=== PATIENT | female | born 1990 | race Two or more races ===

== ENCOUNTER 2022-12-11 09:55 | Observation (INO) | payer MEDICAID, OTHER ==
[2022-12-11] MEDS ORDERED: PREN-129 OR (10:33)
== END 2022-12-11 12:17 | disposition home or self-care (01) ==
LOC: LDRP 09:55
PROVIDERS: ADMIT Obstetrics & Gynecology; ATTEND Obstetrics & Gynecology
DX: O62.9 Abnormality of forces of labor, unspecified (principal); Z3A.40 40 weeks gestation of pregnancy
CPT/HCPCS: 59025; 76818; 81002; G0378

== ENCOUNTER 2022-12-12 03:23 | Inpatient (IN) | payer MEDICAID ==
[~2022-12-12] VITALS: Ht 160 cm; Wt 103.0 kg
[~2022-12-12 03:23] MED LIST: PREN-129 OR
[2022-12-12] MEDS ORDERED: DERMOPLAST 60ML BOTTLE TOP PRN (05:45)
[2022-12-12] MEDS ORDERED: BUTORPHANOL TARTRATE 2 MG/1 ML VIAL IV PRN ×2 (05:45)
[2022-12-12] MEDS ORDERED: LIDOCAINE 2%HCL (LOCAL ANESTH.) INJ 20ML MDV IJ PRN (05:45)
[2022-12-12] MEDS ORDERED: WITCH HAZEL-GLYCERIN PAD TOP PRN (05:45)
[2022-12-12] MEDS ORDERED: LACTATED RINGER'S 1,000 ML IV SCH (05:45)
[2022-12-12] MEDS ORDERED: PHISODERM TOP SOLN 240ML BTL TOP PRN (05:45)
[2022-12-12] MEDS ORDERED: PROMETHAZINE HCL 25 MG/ML 1ML IV PRN (05:45)
[2022-12-12 06:29] LABS: Basophils # (auto) 0 10 ^3/uL (0-0.2); Basophils % (auto) 0.1 % (0.0-2.0); Eosinophils # (auto) 0 10 ^3/uL (0-0.8); Eosinophils % (auto) 0.2 % (0.0-7.0); Hematocrit 38.2 % (36.0-46.0); Hemoglobin 12.7 g/dL (12.2-16.2); Lymphocytes % (auto) 7.2 % (10.0-50.0); Mean Corpuscular Hemoglobin 30.4 pg (28.0-32.0); Mean Corpuscular Hgb Conc. 33.2 g/dL (32.0-36.0); Mean Corpuscular Volume 91.5 fL (80.0-100.0); Monocytes # (auto) 0.9 10 ^3/uL (0-1.3); Monocytes % (auto) 5.9 % (0.0-12.0); Neutrophils # (auto) 12.6 10 ^3/uL (1.6-8.6); Neutrophils % (auto) 86.6 % (37.0-80.0); Red Blood Cells 4.17 10^6/uL (4.0-5.20); White Blood Cell 14.6 10^3/uL (4.4-10.8)
[2022-12-12 06:30] LABS: INR 0.89 (0.9-1.15); Partial Thromboplastin Time 26.5 sec (24.6-33.4)
[2022-12-12] MEDS ORDERED: LACT. RINGERS/OXYTOCIN 20UNITS 500 ML IV ONE ×2 (06:30→07:00)
[2022-12-12] MEDS ORDERED: TERBUTALINE SULFATE 1 MG/ML 1ML VIAL SC PRN (06:30)
[2022-12-12] MEDS ORDERED: ePHEDrine SULFATE 50 MG/ML AMP ONE (06:46)
[2022-12-12] MEDS ORDERED: Lidocaine W-Epinephrine 1.5%-1:200,000 INJ 10ml Vial ONE (06:46)
[2022-12-12] MEDS ORDERED: ROPIVACAINE HCL 0 ML ONE (06:46)
[2022-12-12 06:49] LABS: Albumin 2.6 g/dL (3.4-5.0); BUN/Creatinine Ratio 12.5 (10.0-20.0); Calcium 8.6 mg/dL (8.5-10.1); Potassium 3.6 mmol/L (3.5-5.1)
[2022-12-12] MEDS ORDERED: fentaNYL CITRATE 100 MCG/2 ML VL ONE (06:50)
[2022-12-12 06:52] LABS: Bilirubin, Total 0.4 mg/dL (0.2-1.0); Total Protein 6.7 g/dL (6.4-8.2)
[2022-12-12] MEDS ORDERED: ePHEDrine SULFATE 50 MG/ML AMP IV ONE (07:00)
[2022-12-12] MEDS ORDERED: fentaNYL CITRATE 100 MCG/2 ML VL IV ONE (07:00)
[2022-12-12] MEDS ORDERED: Lidocaine W-Epinephrine 1.5%-1:200,000 INJ 10ml Vial IJ ONE (07:00)
[2022-12-12] MEDS ORDERED: ROPIVACAINE HCL 200 ML EPI SCH (07:00)
[2022-12-12] MEDS ORDERED: LACTATED RINGER'S 1,000 ML IV ONE (07:00)
[2022-12-12] MEDS ORDERED: ONDANSETRON HCL 4 MG/2 ML VIAL IV PRN (07:30)
[2022-12-12] MEDS ORDERED: HYDROmorphone HCL 2 MG/ML VL/or syr IV PRN (07:30)
[2022-12-12] MEDS ORDERED: NALBUPHINE HCL 10 MG/1ml INJECTION IV ONE (07:30)
[2022-12-12] MEDS ORDERED: NALOXONE HCL 0.4 MG/ML VIAL IV PRN (07:30)
[2022-12-12] MEDS ORDERED: diphenhdrAMINE HCL 50 MG/1 ML VL IV PRN (07:30)
[2022-12-12] MEDS ORDERED: ONDANSETRON ODT 4 MG TAB PO PRN (09:15)
[2022-12-12 10:08] LABS: Urine Bacteria NONE SEEN /hpf (None Seen); Urine Blood Negative /uL (Negative); Urine Mucus FEW (None Seen); Urine Specific Gravity 1.022 (1.001-1.035); Urine WBC 3 /hpf (0 - 5)
[2022-12-12 11:23] LABS: Alcohol, Urine < 3.0 mg/dL (0-10); Barbiturate Scree,Urine NEGATIVE (NEGATIVE); Cannabinoid Screen, Urine NEGATIVE (NEGATIVE)
[2022-12-12 11:28] LABS: Amphetamine Screen, Urine NEGATIVE (NEGATIVE); Benzodiazephine Screen, Urine NEGATIVE (NEGATIVE); Cocaine Screen, Urine NEGATIVE (NEGATIVE); Opiate Scree,Urine NEGATIVE (NEGATIVE); Phencyclidine Screen, Urine NEGATIVE (NEGATIVE)
[2022-12-12] MEDS: ACETAMINOPHEN 325 MG TAB PO PRN ×2 (12:46→19:07)
[2022-12-12] MEDS ORDERED: RHO (D) IMMUNE GLOBULIN 300 MCG INJ IM ONE (15:00)
[2022-12-12 15:05] VITALS: BP 125/72
[2022-12-12] MEDS ORDERED: TETANUS-DIPTH-ACEL PERTUSSIS 0.5ML SYR Tdap IM ONE (18:15)
[2022-12-12 19:00] VITALS: BP 116/57
[2022-12-12] MEDS ORDERED: DOCUSATE SOD 100 MG CAP PO SCH (22:00)
[2022-12-12 23:30] VITALS: BP 108/63
[2022-12-13 03:30] VITALS: BP 99/53
[2022-12-13 07:23] VITALS: BP 110/63
[2022-12-13 08:06] LABS: RPR Non Reactive (Non Reactive)
[2022-12-13 11:07] VITALS: BP 114/64
[2022-12-13 15:09] VITALS: BP 127/62
== END 2022-12-13 16:14 | disposition home or self-care (01) | DRG 560 ==
LOC: LDRP 03:23 → OBSVTOIN 05:37 → LDRP 05:54
PROVIDERS: ADMIT Obstetrics & Gynecology; ATTEND Obstetrics & Gynecology
PROC: 10E0XZZ Delivery of Products of Conception, External Approach (ICD-10-PCS; principal; 2022-12-12)
PROC: 10907ZC Drainage of Amniotic Fluid, Therapeutic from Products of Conception, Via Natural or Artificial Opening (ICD-10-PCS; 2022-12-12)
PROC: 3E0234Z Introduction of Serum, Toxoid and Vaccine into Muscle, Percutaneous Approach (ICD-10-PCS; 2022-12-12)
DX: O48.0 Post-term pregnancy (principal); Z37.0 Single live birth; O26.893 Other specified pregnancy related conditions, third trimester; O76 Abnormality in fetal heart rate and rhythm complicating labor and delivery; O77.0 Labor and delivery complicated by meconium in amniotic fluid; Z3A.40 40 weeks gestation of pregnancy; Z67.41 Type O blood, Rh negative
CPT/HCPCS: 36415; 59025; 59409; 80053; 80307; 81001; 81002; 85025; 85610; 85730; 86592; 86850; 86900; 86901; 90384; 90715; 94760; 96360; 96361; 96365; 96366; 96372; G0378; J2590

== ENCOUNTER 2024-12-31 14:40 | Observation (INO) | payer MEDICAID ==
--- NOTE | 2024-12-31 18:43 | DVHDS2 ---
Physician Discharge Progress N Final Diagnosis: heartburn Operations or Procedures: Operations or Procedures 34yo IUP@27.0wks presents to OB triage with c/o numbnes/tingling from stoma ch to bilateral knees occasionally, started 4 days ago. Also has heartburn, asking if omeprazole is okay to take. +fm, Denies UCs/LOF/VB/LEI/vision changes/RUQ pain. PNC uncomplicated thus far. VSS NST reactive FKC/PTL/preE precautions reviewed. Okay to take OTC omeprazole 20mg daily PO Take OTC papaya enzyme chewable tablets for heartburn too take OTC magnesium glycinate 500mg PO qHS for musculoskeletal issues and wear support belt. Dr. Golden consulted, agrees with POC. Condition on Discharge: Stable Disposition: Home Discharge Instructions: Diet: Regular Activity: No Restrictions, As Tolerated Follow Up/Referral: KEEP CURRENT APPOINTMENT WITH DR GOLDEN 01/08/25. RETURN TO [facility]THPLACE INCASE OF EMERGENCY. Medications: BEGIN TAKING PRILOSEC 20MG PO DAILY AND MAGNESIUM GLYCINATE 500MG BY MOUTH DAILY AT NIGHT. Follow Up Care: Specialist: f/u with Dr. Golden as scheduled at [facility] on 01/08/25. Discharge Statement: "Patient was advised to return to the ER or call 911 if any headaches, dizziness, shortness of breath, chest pain, abdominal pain, bleeding, fevers, or worsening of medical condition. Patient was counseled about treatment plan, medications, possible side effects, patientverbalized understanding. All questions were answered to the best of my ability. This discharge took greater then 30 minutes in planning, reviewing documentation, counseling the patient, and discussing with other team members." Visit Coding OBGYN Date of Service: Dec 31, 2024 Billing Provider: CRISS AN CNM CIRCUS RIDER Common Visit Codes: [id number] OBS CARE (HIGH) CIRCUS RIDER Procedure Codes: 27404-31- NON-STRESS TEST CRISS AN CNM Dec 31, 2024 18:43
== END 2024-12-31 15:59 | disposition home or self-care (01) ==
LOC: LDRP 14:40 → UNDOADMOB 14:40 → LDRP 14:50 → UNDODISOB 15:59
PROVIDERS: ADMIT Obstetrics & Gynecology; ATTEND Obstetrics & Gynecology
DX: O26.892 Other specified pregnancy related conditions, second trimester (principal); R12 Heartburn; R20.2 Paresthesia of skin; Z3A.27 27 weeks gestation of pregnancy; Z79.899 Other long term (current) drug therapy
CPT/HCPCS: 81002; G0378

== ENCOUNTER 2025-03-25 19:45 | Observation (INO) | payer MEDICAID ==
--- NOTE | 2025-03-25 20:57 | DVH ---
US OB LIMITED CLINICAL HISTORY: DIANA COMPARISON: At the time of this review, no recent prior studies are available for comparison. TECHNIQUE: Real-time grayscale and color-flow imaging of the gravid uterus is performed. Findings and impression: Single living intrauterine gestation. Cephalic presentation. heart rate 160 beats per minute. The placenta is anterior. No definite evidence of abruption or previa at this time. Current amniotic fluid index is 14.2 cm. Transitional Care Nurse reports good movement on real-time imaging.
--- NOTE | 2025-03-25 21:15 | DVHDS2 ---
Physician Discharge Progress N Final Diagnosis: ruled out labor Secondary Diagnosis: carli pena contractions Operations or Procedures: Operations or Procedures S: 35yo IUP@39.0wks presents with c/o UCs. +FM, denies VB/LOF/LEI/vision changes/RUQ pain. PNC with Dr. Golden uncomplicated. O: VSS NST reactive A: 35yo IUP@39.0wks ruled out labor carli pena contractions P: D/C home FKC/preE/labor precautions reviewed Condition on Discharge: Stable Disposition: Home Discharge Instructions: Diet: Regular Activity: No Restrictions, As Tolerated Medications: see med list Follow Up Care: Specialist: f/u with Dr. Golden Discharge Statement: "Patient was advised to return to the ER or call 911 if any headaches, dizziness, shortness of breath, chest pain, abdominal pain, bleeding, fevers, or worsening of medical condition. Patient was counseled about treatment plan, medications, possible side effects, patientverbalized understanding. All questions were answered to the best of my ability. This discharge took greater then 30 minutes in planning, reviewing documentation, counseling the patient, and discussing with other team members." Visit Coding OBGYN Date of Service: Mar 25, 2025 Billing Provider: CRISS AN CNM STRINGER UP SOLDERING MACHINE Common Visit Codes: [id number] OBS CARE (HIGH) STRINGER UP SOLDERING MACHINE Procedure Codes: 64377-13- NON-STRESS TEST CRISS AN CNM Mar 25, 2025 21:14
== END 2025-03-25 21:07 | disposition home or self-care (01) ==
LOC: LDRP 19:45
PROVIDERS: ADMIT Obstetrics & Gynecology; ATTEND Obstetrics & Gynecology
DX: O62.9 Abnormality of forces of labor, unspecified (principal); Z3A.39 39 weeks gestation of pregnancy; Z98.890 Other specified postprocedural states
CPT/HCPCS: 59025; 76815; 81002; 94760; G0378

== ENCOUNTER 2025-03-27 09:52 | Inpatient (IN) | payer MEDICAID ==
[~2025-03-27] VITALS: Ht 160 cm; Wt 102.5 kg
[2025-03-27] MEDS ORDERED: LIDOCAINE 2%HCL (LOCAL ANESTH.) INJ 20ML MDV IJ PRN (10:15)
[2025-03-27 10:36] LABS: Hematocrit 38.5 % (36.0-46.0); Hemoglobin 13.3 g/dL (12.2-16.2); Mean Corpuscular Hemoglobin 32.0 pg (28.0-32.0); Mean Corpuscular Volume 92.5 fL (80.0-100.0); Nucleated Red Blood Cells % 0.0 %
[2025-03-27 10:37] LABS: Urine Protein, UAD Negative (Negative)
[2025-03-27 10:51] LABS: Amphetamine Screen, Urine Neg (NEGATIVE); Barbiturate Scree,Urine Neg (NEGATIVE); Benzodiazephine Screen, Urine Neg (NEGATIVE); Cannabinoid Screen, Urine Neg (NEGATIVE); Cocaine Screen, Urine Neg (NEGATIVE); Opiate Scree,Urine Neg (NEGATIVE); Phencyclidine Screen, Urine Neg (NEGATIVE)
[2025-03-27 10:52] LABS: Alanine Aminotransferase 15 U/L (7-40); Albumin 4.2 g/dL (3.2-4.8); Alkaline Phosphatase 154 U/L (46-116); Anion Gap 10 (5-15); BUN/Creatinine Ratio 7.4 (10.0-20.0); Bilirubin, Total 0.6 mg/dL (0.2-1.0); Blood Urea Nitrogen 5 mg/dL (9-23); Calcium 8.9 mg/dL (8.7-10.4); Carbon Dioxide 22 mmol/L (20-31); Chloride 107 mmol/L (98-107); Glucose 122 mg/dL (74-106); Potassium 3.6 mmol/L (3.5-5.1); Sodium 139 mmol/L (136-145); Total Protein 7.1 g/dL (5.7-8.2)
[2025-03-27 10:53] LABS: INR 0.95 (0.9-1.15); Partial Thromboplastin Time 25.8 SEC (24.5-34.5); Prothrombin Time 10.1 sec (9.3-11.8)
[2025-03-27] MEDS: DERMOPLAST 60ML BOTTLE TOP PRN (11:44)
[2025-03-27] MEDS: WITCH HAZEL-GLYCERIN PAD TOP PRN (11:44)
[2025-03-27] MEDS: PHISODERM TOP SOLN 240ML BTL TOP PRN (11:45)
--- NOTE | 2025-03-27 12:26 | DVHHP2 ---
OB CC & HPI Date Date of Admission: Mar 27, 2025 Patient Identification: : 3 Para: 2 EDC: Apr 01, 2025 EGA: 39wks Chief Complaints: Reason for admission: induction of labor Admission Nurse Assessment Rev: No History of Present Complaints pt wants iol for sychosocial ,nor om or vag bleeding.pt requesting iol Past Medical History Cardiac: No pertinent Hx Pulmonary: No pertinent Hx Central Nervous System: No pertinent Hx GI: No pertinent Hx Hemotology/Oncology: No pertinent Hx Hepatobiliary: No pertinent Hx Psychiatric: No pertinent Hx Musculoskeletal: No pertinent Hx Rheumotologic: No pertinent Hx Infectious Disease: No peritnent Hx ENT: No pertinent Hx Renal/: No pertinent Hx Endocrine: No pertinent Hx Dermatology: No pertinent Hx Past Surgical History: No pertinent Hx OB History OB History Care: Good Care Ultrasounds: Normal mid trimester US Obstetrical Complications: None Medical Complications: None Allergies: Coded Allergies: NO KNOWN ALLERGIES (Unverified , 12/11/22) Home Meds Reported Medications Vit W/ Ferrous Fumara () Tab, 1 OR, TAB 12/11/22 Current Medications Current Medications Medications (Trade) Dose Ordered Sig/Shira Route PRN Reason Start Time Stop Time Status Last Admin Lactated Ringer's 1,000 ml @ 125 mls/hr Q8H IV 03/27/25 10:15 Witch Kati (Tucks) 1 pad PRN PRN TOP PERINEAL AREA DISCOMFORT 03/27/25 10:15 03/27/25 11:44 Sodium Lauryl Sulfate (Phisoderm) 240 ml PRN PRN TOP PERINEAL AREA DISCOMFORT 03/27/25 10:15 03/27/25 11:45 Benzocaine (Dermoplast) 1 applic PRN PRN TOP PERINEAL AREA DISCOMFORT 03/27/25 10:15 03/27/25 11:44 Lidocaine HCl (Xylocaine) 20 ml ONCE PRN IJ PERINEAL AREA DISCOMFORT 03/27/25 10:15 Misoprostol (Cytotec) 50 mcg Q4HPRN PRN PO CERVICAL RIPENING 03/27/25 11:15 03/27/25 11:46 Family & Social History Family/Social History Blood Type: Unknown Rubella: not immune RPR/VDRL: Negative GBS Status: Negative HBsAG: Negative Review of Systems Constitutional: No symptom reported Ears, Nose, & Throat: No symptom reported Eyes: No symptom reported Pulmonary/Respiratory: No symptom reported Cardiovascular: No symptom reported Gastrointestinal: No symptom reported Genitourinary: No symptom reported Musculoskeletal: No symptom reported Skin: No symptom reported Psychiatric: No symptom reported Endocrine: No symptom reported Hemotologic/Lymphatic: No symptom reported OB Admission Exam Physical Exam HEENT: TMs Normal, Fontanelles Normal, Nasal Mucosa Normal, Eyes non-injected, Oropharynx Normal, PERRLA, Moist Membranes, EOMI Heart: Rhythm Normal Lungs: Clear Abdomen: Non tender Extremities: Normal Reflexes: Normal Cervical Dilatation: 1cm Effacement: 25% Station: -3 Membranes: Intact Heart Rate: 130's Accelerations: Accelerations Present Decelerations: No Decelerations Short Term Variability: Present Lifts And Cranes Inspector Variability: Average (6-25) Contractions on Admission: >10 Minutes Apart Intensity: Mild OB Plan Plan Admitting Diagnosis: IOL Plan: Expectant Management Induction Methd: Misoprostol protocol Other Plan: informed consent obtained Visit Coding OBGYN Date of Service: Mar 27, 2025 Billing Provider: DANIELLA WILEY DO CAR LOT ATTENDANT Common Visit Codes: [id number] OBS CARE (HIGH) CAR LOT ATTENDANT Procedure Codes: 36200-74- NON-STRESS TEST DANIELLA WILEY DO Mar 27, 2025 12:26
--- NOTE | 2025-03-27 15:38 | DVHPN2 ---
Chief Complaints Patient reports: No new complaints Nursing reports: No new complaints Objective Medications Current Medications Medications (Trade) Dose Ordered Sig/Shira Route PRN Reason Start Time Stop Time Status Last Admin Benzocaine (Dermoplast) 1 applic PRN PRN TOP PERINEAL AREA DISCOMFORT 03/27/25 10:15 03/27/25 11:44 Lactated Ringer's 1,000 ml @ 125 mls/hr Q8H IV 03/27/25 10:15 Lidocaine HCl (Xylocaine) 20 ml ONCE PRN IJ PERINEAL AREA DISCOMFORT 03/27/25 10:15 Misoprostol (Cytotec) 50 mcg Q4HPRN PRN PO CERVICAL RIPENING 03/27/25 11:15 03/27/25 11:46 Sodium Lauryl Sulfate (Phisoderm) 240 ml PRN PRN TOP PERINEAL AREA DISCOMFORT 03/27/25 10:15 03/27/25 11:45 Witch Kati (Tucks) 1 pad PRN PRN TOP PERINEAL AREA DISCOMFORT 03/27/25 10:15 03/27/25 11:44 Others ve-1cm/60/-2 Studies Laboratory Tests 03/27/25 10:10 Test 03/27/25 10:10 Range/Units Serum Glucose 122 H 74-106 mg/dL Ass/Plan Assessment iol Plan rec 2 cytotec Visit Coding OBGYN Date of Service: Mar 27, 2025 Billing Provider: DANIELLA WILEY DO ADDICTION PSYCHIATRIST Common Visit Codes: [id number] OBS CARE (HIGH) ADDICTION PSYCHIATRIST Procedure Codes: 45138-75- NON-STRESS TEST DANIELLA WILEY DO Mar 27, 2025 15:38
[2025-03-27] MEDS: LACTATED RINGER'S 1,000 ML IV SCH (19:04)
--- NOTE | 2025-03-27 21:13 | DVHPN2 ---
CNM Labor Progress Note Date and Time Seen Date Seen: Mar 27, 2025 Time Seen: 20:15 Subjective Patient reports: No new complaints Subjective Comment Patient resting L lateral upon entry to room. States she is feeling the contractions, but they are mild and she is tolerating them well. Objective Vital Signs See CPN. VSS Monitoring Method Monitoring Method: External Heart Rate Heart Rate Baseline: 120 Heart Rate Variability: Moderate Presence of FHR Accelerations: Yes Presence of FHR Decelerations: No Comment on Trends or Patterns: category 1 Are all 5 Components of the FH: Yes Contractions Contractions Frequency: Occasional Contractions Intensity: Mild Contractions Resting Tone: Relaxed Membranes Membranes: Intact Vaginal Exam Vag Exam Deferred: Yes Medications Medications - Pitocin: No Medication - Epidural: No Lab Results Lab Results Current Medications Medications (Trade) Dose Ordered Sig/Shira Start Time Stop Time Status Last Admin Dose Admin Lactated Ringer's 1,000 ml @ 125 mls/hr Q8H 03/27/25 10:15 03/27/25 19:04 125 MLS/HR Johnny Parikh (Tucks) 1 pad PRN PRN 03/27/25 10:15 03/27/25 11:44 1 PAD Sodium Lauryl Sulfate (Phisoderm) 240 ml PRN PRN 03/27/25 10:15 03/27/25 11:45 240 ML Benzocaine (Dermoplast) 1 applic PRN PRN 03/27/25 10:15 03/27/25 11:44 1 APPLIC Lidocaine HCl (Xylocaine) 20 ml ONCE PRN 03/27/25 10:15 Oxytocin 500 ml @ 999 mls/hr Q31M ONCE 03/27/25 10:15 03/27/25 10:45 DC Oxytocin 500 ml @ 125 mls/hr Q4H ONCE 03/27/25 10:45 03/27/25 14:44 DC Misoprostol (Cytotec) 50 mcg Q4HPRN PRN 03/27/25 11:15 03/27/25 15:45 50 MCG Laboratory Tests Test 03/27/25 10:10 Range/Units White Blood Count 9.1 4.4-10.8 10^3/uL Red Blood Count 4.16 4.0-5.20 10^6/uL Hemoglobin 13.3 12.2-16.2 g/dL Hematocrit 38.5 36.0-46.0 % Mean Corpuscular Volume 92.5 80.0-100.0 fL Mean Corpuscular Hemoglobin 32.0 28.0-32.0 pg Mean Corpuscular Hemoglobin Concent 34.6 32.0-36.0 g/dL Red Cell Distribution Width 13.7 11.8-14.3 % Platelet Count 228 140-450 10^3/uL Mean Platelet Volume 8.9 6.9-10.8 fL Neutrophils (%) (Auto) 71.4 37.0-80.0 % Lymphocytes (%) (Auto) 18.0 10.0-50.0 % Monocytes (%) (Auto) 9.2 0.0-12.0 % Eosinophils (%) (Auto) 1.0 0.0-7.0 % Basophils (%) (Auto) 0.4 0.0-2.0 % Neutrophils # (Auto) 6.5 1.6-8.6 10 ^3/uL Lymphocytes # (Auto) 1.6 0.4-5.4 10 ^3/uL Monocytes # (Auto) 0.8 0-1.3 10 ^3/uL Eosinophils # (Auto) 0.1 0-0.8 10 ^3/uL Basophils # (Auto) 0 0-0.2 10 ^3/uL Nucleated Red Blood Cells 0.0 % Prothrombin Time 10.1 9.3-11.8 sec Prothrombin Time INR 0.95 0.9-1.15 Activated Partial Thromboplast Time 25.8 24.5-34.5 SEC Urine Color Light-yellow Yellow Urine Clarity Clear Clear Urine pH 6.5 5.0-9.0 Urine Specific [place] 1.010 1.001-1.035 Urine Protein Negative Negative Urine Ketones Negative Negative Urine Blood Negative Negative /uL Urine Nitrite Negative Negative Urine Bilirubin Negative Negative Urine Urobilinogen Normal Negative mg/dL Urine Leukocyte Esterase Trace Negative /uL Urine RBC <1 0 - 4 /hpf Urine Microscopic WBC < 1 0-5 /HPF Urine Squamous Epithelial Cells Few <5 /hpf Urine Bacteria Few H None Seen /hpf Urine Glucose Normal Normal mg/dL Sodium Level 139 136-145 mmol/L Potassium Level 3.6 3.5-5.1 mmol/L Chloride Level 107 98-107 mmol/L Carbon Dioxide Level 22 20-31 mmol/L Anion Gap 10 5-15 Blood Urea Nitrogen 5 L 9-23 mg/dL Creatinine 0.68 0.550-1.02 mg/dL Glomerular Filtration Rate Calc 116 >90 mL/min BUN/Creatinine Ratio 7.4 L 10.0-20.0 Serum Glucose 122 H 74-106 mg/dL Calcium Level 8.9 8.7-10.4 mg/dL Total Bilirubin 0.6 0.2-1.0 mg/dL Aspartate Amino Transferase (AST) 15 13-40 U/L Alanine Aminotransferase (ALT) 15 7-40 U/L Alkaline Phosphatase 154 H 46-116 U/L Total Protein 7.1 5.7-8.2 g/dL Albumin 4.2 3.2-4.8 g/dL Urine Opiates Screen Neg NEGATIVE Urine Fentanyl Screen Neg NEGATIVE Urine Barbiturates Screen Neg NEGATIVE Urine Phencyclidine Screen Neg NEGATIVE Urine Amphetamines Screen Neg NEGATIVE Urine Benzodiazepines Screen Neg NEGATIVE Urine Cocaine Screen Neg NEGATIVE Urine Cannabinoids Screen Neg NEGATIVE Treponema pallidum Antibody Non-reactive Negative Hepatitis C Antibody Negative Negative Assessment Assessment -Elective IOL- IUP at 39w2d -GBS negative -Category 1 tracing Plan Plan -Continue administration of miso 50mcg PO q4 hours per protocol -Frequently reposition patient as needed for FHR tracing and pt comfort -Vital signs per unit policy. Patient can have intermittent monitoring per protocol if baby is category 1 and reactive. OK to have regular diet -Patient can get epidural whenever requested -Discussed co-administration of cervical ripening balloon with misoprostol. Reviewed risks/benefits with patient and answered all questions. Patient would l javi to have the balloon placed after she finishes eating Plan discussed with: Patient, Spouse, Other (Mother) Visit Coding OBGYN Date of Service: Mar 27, 2025 Billing Provider: BRIAN BRYANT CNM REFRIGERATOR GLAZIER Common Visit Codes: [id number] INP/OBS CARE(MOD) BRIAN BRYANT CNM Mar 27, 2025 21:13
--- NOTE | 2025-03-27 22:47 | DVHPN2 ---
CNM Labor Progress Note Date and Time Seen Date Seen: Mar 27, 2025 Time Seen: 22:05 Subjective Patient reports: No new complaints (Happy that she was able to eat) Subjective Comment Patient resting L lateral and is ready for the wu CRB to be placed Objective Vital Signs VSS. See CPN Monitoring Method Monitoring Method: External Heart Rate Heart Rate Baseline: 125 Heart Rate Variability: Moderate Presence of FHR Accelerations: Yes Presence of FHR Decelerations: No Comment on Trends or Patterns: category 1 Are all 5 Components of the FH: Yes Contractions Contractions Frequency: Occasional Contractions Intensity: Mild Contractions Resting Tone: Relaxed Membranes Membranes: Intact Vaginal Exam Vag Exam Deferred: No Vaginal Exam Dilation: 1 Vaginal Exam Presentation: VTX Vaginal Exam Show: Small Medications Medications - Pitocin: No Medication - Epidural: No Lab Results Lab Results Current Medications Medications (Trade) Dose Ordered Sig/Shira Start Time Stop Time Status Last Admin Dose Admin Lactated Ringer's 1,000 ml @ 125 mls/hr Q8H 03/27/25 10:15 03/27/25 19:04 125 MLS/HR Witflorin Kati (Tucks) 1 pad PRN PRN 03/27/25 10:15 03/27/25 11:44 1 PAD Sodium Lauryl Sulfate (Phisoderm) 240 ml PRN PRN 03/27/25 10:15 03/27/25 11:45 240 ML Benzocaine (Dermoplast) 1 applic PRN PRN 03/27/25 10:15 03/27/25 11:44 1 APPLIC Lidocaine HCl (Xylocaine) 20 ml ONCE PRN 03/27/25 10:15 Oxytocin 500 ml @ 999 mls/hr Q31M ONCE 03/27/25 10:15 03/27/25 10:45 DC Oxytocin 500 ml @ 125 mls/hr Q4H ONCE 03/27/25 10:45 03/27/25 14:44 DC Misoprostol (Cytotec) 50 mcg Q4HPRN PRN 03/27/25 11:15 03/27/25 21:08 50 MCG Laboratory Tests Test 03/27/25 10:10 Range/Units White Blood Count 9.1 4.4-10.8 10^3/uL Red Blood Count 4.16 4.0-5.20 10^6/uL Hemoglobin 13.3 12.2-16.2 g/dL Hematocrit 38.5 36.0-46.0 % Mean Corpuscular Volume 92.5 80.0-100.0 fL Mean Corpuscular Hemoglobin 32.0 28.0-32.0 pg Mean Corpuscular Hemoglobin Concent 34.6 32.0-36.0 g/dL Red Cell Distribution Width 13.7 11.8-14.3 % Platelet Count 228 140-450 10^3/uL Mean Platelet Volume 8.9 6.9-10.8 fL Neutrophils (%) (Auto) 71.4 37.0-80.0 % Lymphocytes (%) (Auto) 18.0 10.0-50.0 % Monocytes (%) (Auto) 9.2 0.0-12.0 % Eosinophils (%) (Auto) 1.0 0.0-7.0 % Basophils (%) (Auto) 0.4 0.0-2.0 % Neutrophils # (Auto) 6.5 1.6-8.6 10 ^3/uL Lymphocytes # (Auto) 1.6 0.4-5.4 10 ^3/uL Monocytes # (Auto) 0.8 0-1.3 10 ^3/uL Eosinophils # (Auto) 0.1 0-0.8 10 ^3/uL Basophils # (Auto) 0 0-0.2 10 ^3/uL Nucleated Red Blood Cells 0.0 % Prothrombin Time 10.1 9.3-11.8 sec Prothrombin Time INR 0.95 0.9-1.15 Activated Partial Thromboplast Time 25.8 24.5-34.5 SEC Urine Color Light-yellow Yellow Urine Clarity Clear Clear Urine pH 6.5 5.0-9.0 Urine Specific [place] 1.010 1.001-1.035 Urine Protein Negative Negative Urine Ketones Negative Negative Urine Blood Negative Negative /uL Urine Nitrite Negative Negative Urine Bilirubin Negative Negative Urine Urobilinogen Normal Negative mg/dL Urine Leukocyte Esterase Trace Negative /uL Urine RBC <1 0 - 4 /hpf Urine Microscopic WBC < 1 0-5 /HPF Urine Squamous Epithelial Cells Few <5 /hpf Urine Bacteria Few H None Seen /hpf Urine Glucose Normal Normal mg/dL Sodium Level 139 136-145 mmol/L Potassium Level 3.6 3.5-5.1 mmol/L Chloride Level 107 98-107 mmol/L Carbon Dioxide Level 22 20-31 mmol/L Anion Gap 10 5-15 Blood Urea Nitrogen 5 L 9-23 mg/dL Creatinine 0.68 0.550-1.02 mg/dL Glomerular Filtration Rate Calc 116 >90 mL/min BUN/Creatinine Ratio 7.4 L 10.0-20.0 Serum Glucose 122 H 74-106 mg/dL Calcium Level 8.9 8.7-10.4 mg/dL Total Bilirubin 0.6 0.2-1.0 mg/dL Aspartate Amino Transferase (AST) 15 13-40 U/L Alanine Aminotransferase (ALT) 15 7-40 U/L Alkaline Phosphatase 154 H 46-116 U/L Total Protein 7.1 5.7-8.2 g/dL Albumin 4.2 3.2-4.8 g/dL Urine Opiates Screen Neg NEGATIVE Urine Fentanyl Screen Neg NEGATIVE Urine Barbiturates Screen Neg NEGATIVE Urine Phencyclidine Screen Neg NEGATIVE Urine Amphetamines Screen Neg NEGATIVE Urine Benzodiazepines Screen Neg NEGATIVE Urine Cocaine Screen Neg NEGATIVE Urine Cannabinoids Screen Neg NEGATIVE Treponema pallidum Antibody Non-reactive Negative Hepatitis C Antibody Negative Negative Assessment Assessment -Elective IOL, IUP at 39w2d -GBS negative -Category 1 tracing Plan Plan -Discussed CRB placement with patient. Answered all questions. Consent received to place CBR. RN at bedside. Placed wu CRB with 60mL NS in balloon. Traction created with pumping station supervisor leg, per standard practice. RN to place gentle traction every 2-3 hours per protocol -Continue misoprostol 50mcg PO q 4 hours. OK to defer SVE until after 6 doses -Vital signs per facility policy -Monitor FHR per protocol. OK to be intermittent if baby is category 1 and reactive. -Will re-assess in 12 hours or sooner if CRB is spontaneously expelled Plan discussed with: Patient, Spouse, Other (mother) Visit Coding OBGYN Date of Service: Mar 27, 2025 Billing Provider: BRIAN BRYANT CNM FLOOR CARE TECHNICIAN Common Visit Codes: [id number] INP/OBS CARE(HIGH) BRIAN BRYANT CNM Mar 27, 2025 22:47
[2025-03-28] MEDS ORDERED: NALOXONE HCL 0.4 MG/ML VIAL IV ONE (01:30)
[2025-03-28] MEDS ORDERED: Lidocaine W-Epinephrine 1.5%-1:200,000 INJ 10ml Vial IJ ONE (01:30)
[2025-03-28] MEDS ORDERED: LIDOCAINE HCL 2 %PF INJ 10ML AMP IJ ONE (01:30)
[2025-03-28] MEDS: LACTATED RINGER'S 1,000 ML IV ONE (01:48)
--- NOTE | 2025-03-28 02:41 | EPIDURAL ---
Anesthesia Procedural Note - Epidural Informed consent obtained?: Yes Medication Administered: Fentanyl 100 mcg Medication Administered: ePHEDrine 5 mg IV Spinal level of insertion: L3-L4 Test dose of lidocaine & Epine: Negative Infusion started: Yes Start time: 02:03 End time: 07:35 Procedure description Procedure description: 39 3/7 weeks AOG, in active labor, desires PCEA for labor and delivery. Ms. Morgan delivered a single live baby boy by , with APGARs 8 & 9 at 1 & 5 minutes respectively. Epidural catheter pulled with tip intact. No redness, oozing, or pain around the epidural area. Ms. Morgan is back to baseline, able to ambulate on her own and slater with her . Total epidural time: 02:03 - 07:35 Total face to face time: :03 - :41 YSESI ARDON MD Mar 28, 2025 02:41
[2025-03-28] MEDS: fentaNYL CITRATE 100 MCG/2 ML VL IV ONE (02:47)
[2025-03-28] MEDS: ROPIVACAINE HCL 100 ML ONE (02:48)
--- NOTE | 2025-03-28 03:18 | DVHPN2 ---
CNM Labor Progress Note Date and Time Seen Date Seen: Mar 28, 2025 Time Seen: 03:00 Subjective Patient reports: Feels better Subjective Comment Patient laying low fowlers post CRB expulsion and post epidural placement. States she feels much better and is pain free. Objective Vital Signs VSS Monitoring Method Monitoring Method: External Heart Rate Heart Rate Baseline: 125 Heart Rate Variability: Moderate Presence of FHR Accelerations: Yes Presence of FHR Decelerations: No Comment on Trends or Patterns: cat 1 Contractions Contractions Frequency: Other (3-4 min) Contractions Intensity: Mild Contractions Resting Tone: Relaxed Membranes Membranes: Ruptured Amniotic Fluid Color: Clear, Bloody Vaginal Exam Vag Exam Deferred: No Vaginal Exam Dilation: 4 Vaginal Exam Effacement: 70 Vaginal Exam Presentation: VTX Vaginal Exam Show: Small Medications Medications - Pitocin: No Medication - Epidural: Yes Lab Results Lab Results Vital Signs Date Time Temp Pulse Resp B/P (MAP) Pulse Ox O2 Delivery O2 Flow Rate FiO2 03/28/25 02:47 135/78 Current Medications Medications (Trade) Dose Ordered Sig/Shira Start Time Stop Time Status Last Admin Dose Admin Lactated Ringer's 1,000 ml @ 125 mls/hr Q8H 03/27/25 10:15 03/28/25 02:49 125 MLS/HR Witch Kati (Tucks) 1 pad PRN PRN 03/27/25 10:15 03/27/25 11:44 1 PAD Sodium Lauryl Sulfate (Phisoderm) 240 ml PRN PRN 03/27/25 10:15 03/27/25 11:45 240 ML Benzocaine (Dermoplast) 1 applic PRN PRN 03/27/25 10:15 03/27/25 11:44 1 APPLIC Lidocaine HCl (Xylocaine) 20 ml ONCE PRN 03/27/25 10:15 Oxytocin 500 ml @ 999 mls/hr Q31M ONCE 03/27/25 10:15 03/27/25 10:45 DC Oxytocin 500 ml @ 125 mls/hr Q4H ONCE 03/27/25 10:45 03/27/25 14:44 DC Misoprostol (Cytotec) 50 mcg Q4HPRN PRN 03/27/25 11:15 03/27/25 21:08 50 MCG Naloxone HCl (Narcan) 0.2 mg PRN ONCE 03/28/25 01:30 03/28/25 01:31 DC Ephedrine Sulfate (ePHEDrine SULFATE) 10 mg PRN ONCE 03/28/25 01:30 03/28/25 01:31 DC 03/28/25 02:35 10 MG Fentanyl Citrate 100 mcg ONCE ONCE 03/28/25 01:30 03/28/25 01:31 DC 03/28/25 02:47 100 MCG Lidocaine HCl (Xylocaine-Pf 2% Injection) 10 ml ONCE ONCE 03/28/25 01:30 03/28/25 01:31 DC Lactated Ringer's 1,000 ml @ 1,000 mls/hr Q1H ONCE 03/28/25 01:30 03/28/25 02:29 DC 03/28/25 01:48 1,000 MLS/HR Lidocaine/ Epinephrine (Xylocaine-Mpf/ Epinephrine 1.5 %-1:[id number]) 10 ml ONCE ONCE 03/28/25 01:30 03/28/25 01:31 DC Laboratory Tests Test 03/27/25 10:10 Range/Units White Blood Count 9.1 4.4-10.8 10^3/uL Red Blood Count 4.16 4.0-5.20 10^6/uL Hemoglobin 13.3 12.2-16.2 g/dL Hematocrit 38.5 36.0-46.0 % Mean Corpuscular Volume 92.5 80.0-100.0 fL Mean Corpuscular Hemoglobin 32.0 28.0-32.0 pg Mean Corpuscular Hemoglobin Concent 34.6 32.0-36.0 g/dL Red Cell Distribution Width 13.7 11.8-14.3 % Platelet Count 228 140-450 10^3/uL Mean Platelet Volume 8.9 6.9-10.8 fL Neutrophils (%) (Auto) 71.4 37.0-80.0 % Lymphocytes (%) (Auto) 18.0 10.0-50.0 % Monocytes (%) (Auto) 9.2 0.0-12.0 % Eosinophils (%) (Auto) 1.0 0.0-7.0 % Basophils (%) (Auto) 0.4 0.0-2.0 % Neutrophils # (Auto) 6.5 1.6-8.6 10 ^3/uL Lymphocytes # (Auto) 1.6 0.4-5.4 10 ^3/uL Monocytes # (Auto) 0.8 0-1.3 10 ^3/uL Eosinophils # (Auto) 0.1 0-0.8 10 ^3/uL Basophils # (Auto) 0 0-0.2 10 ^3/uL Nucleated Red Blood Cells 0.0 % Prothrombin Time 10.1 9.3-11.8 sec Prothrombin Time INR 0.95 0.9-1.15 Activated Partial Thromboplast Time 25.8 24.5-34.5 SEC Urine Color Light-yellow Yellow Urine Clarity Clear Clear Urine pH 6.5 5.0-9.0 Urine Specific [place] 1.010 1.001-1.035 Urine Protein Negative Negative Urine Ketones Negative Negative Urine Blood Negative Negative /uL Urine Nitrite Negative Negative Urine Bilirubin Negative Negative Urine Urobilinogen Normal Negative mg/dL Urine Leukocyte Esterase Trace Negative /uL Urine RBC <1 0 - 4 /hpf Urine Microscopic WBC < 1 0-5 /HPF Urine Squamous Epithelial Cells Few <5 /hpf Urine Bacteria Few H None Seen /hpf Urine Glucose Normal Normal mg/dL Sodium Level 139 136-145 mmol/L Potassium Level 3.6 3.5-5.1 mmol/L Chloride Level 107 98-107 mmol/L Carbon Dioxide Level 22 20-31 mmol/L Anion Gap 10 5-15 Blood Urea Nitrogen 5 L 9-23 mg/dL Creatinine 0.68 0.550-1.02 mg/dL Glomerular Filtration Rate Calc 116 >90 mL/min BUN/Creatinine Ratio 7.4 L 10.0-20.0 Serum Glucose 122 H 74-106 mg/dL Calcium Level 8.9 8.7-10.4 mg/dL Total Bilirubin 0.6 0.2-1.0 mg/dL Aspartate Amino Transferase (AST) 15 13-40 U/L Alanine Aminotransferase (ALT) 15 7-40 U/L Alkaline Phosphatase 154 H 46-116 U/L Total Protein 7.1 5.7-8.2 g/dL Albumin 4.2 3.2-4.8 g/dL Urine Opiates Screen Neg NEGATIVE Urine Fentanyl Screen Neg NEGATIVE Urine Barbiturates Screen Neg NEGATIVE Urine Phencyclidine Screen Neg NEGATIVE Urine Amphetamines Screen Neg NEGATIVE Urine Benzodiazepines Screen Neg NEGATIVE Urine Cocaine Screen Neg NEGATIVE Urine Cannabinoids Screen Neg NEGATIVE Treponema pallidum Antibody Non-reactive Negative Hepatitis C Antibody Negative Negative Assessment Assessment -IUP at 39w3d, elective induction -AROM, clear fluid -GBS negative Plan Plan -Discussed AROM risks/benefits with patient. Patient requests AROM at this time. AROM performed without complication. Small amount of clear fluid noted -D/C misoprostol PO. RN to start pitocin at 2mu and titrate per protocol -Reposition patient frequently and as needed for tracing and maternal comfort -Vital signs per unit policy -Re-assess cervix in 4-6 hours or sooner, if indicated -Anticipate normal spontaneous vaginal delivery Plan discussed with: Patient Visit Coding OBGYN Date of Service: Mar 28, 2025 Billing Provider: BRIAN BRYANT CNM MARKET RESEARCH SENIOR PROJECT MANAGER Common Visit Codes: [id number] INP/OBS CARE(HIGH) BRIAN BRYANT CNM Mar 28, 2025 03:18
[2025-03-28] MEDS ORDERED: LACT. RINGERS/OXYTOCIN 20UNITS 1,000 ML IV SCH ×2 (03:30)
[2025-03-28] MEDS ORDERED: TERBUTALINE SULFATE 1 MG/ML 1ML VIAL SC PRN (03:30)
--- NOTE | 2025-03-28 07:41 | LDN2 ---
Labor and Delivery Note Date 03/28/25 Age 35 3 Para 2->3 EDC 04/01/25 EGA 39w3d Diagnosis Elective IOL Intact Perineum Vaginal Delivery: VTX Vacuum Assisted: No Placenta: Spontaneous (dong) Sex: Male Weight Pending. Salgado hour in progress Apgars 8/9 Nuchal Cord Transected: Yes (delivered through) Amniotic Fluid: Clear Anesthesia epidural Episiotomy: No Extension: No EBL 400 in drape Labs Blood Bank 03/27/25 10:10: Blood Type O NEGATIVE Comments/Significant Med Kimberly At 0720 this 35yo now delivered a viable male by w/ APGARS 8/9. ALBIN. placed skin to skin on pts chest. Cord clamped and cut after pulsation ceased. Cord blood collected. Intact 3- vessel cord and intact placenta (Dong), delivered spontaneously Pitocin IV bolus started. Brisk bleeding noted. 800mcg misoprostol given. 600mcg in rectum and 200mcg sublingual. Placenta sent to pathology. Patient had epidural and pain was well managed Cervix inspected and intact. Perineum intact. Rectal mucosa and sphincter intact. Fundus at U, firm, midline, and light lochia. QBL 400ml. VSS. Count correct x2. Patient to care and baby to couplet care, both stable. Visit Coding OBGYN Date of Service: Mar 28, 2025 Billing Provider: BRIAN BRYANT CNM LEGAL RECOVERY SPECIALIST Common Visit Codes: [id number] INP/OBS CARE(HIGH) LEGAL RECOVERY SPECIALIST Procedure Codes: [id number] DEL INCLUDING BRIAN BRYANT CNM Mar 28, 2025 07:41
[2025-03-28] MEDS: LACT. RINGERS/OXYTOCIN 20UNITS 500 ML IV ONE ×2 (07:57→07:59)
[2025-03-28] MEDS ORDERED: ONDANSETRON ODT 4 MG TAB PO PRN (08:00)
[2025-03-28 10:30] VITALS: PULSE 75; RESP 18
[2025-03-28 14:51] VITALS: BP 120/50; PULSE 85; TEMP 99.1; O2SAT 97
[2025-03-28] MEDS: IBUPROFEN 600 MG TAB PO PRN (15:22)
[2025-03-28] MEDS: RHO (D) IMMUNE GLOBULIN 300 MCG INJ IM ONE (17:05)
[2025-03-28 19:00] VITALS: BP 115/58; PULSE 81; RESP 16; TEMP 98.4; O2SAT 97
[2025-03-28] MEDS: ACETAMINOPHEN 325 MG TAB PO PRN (19:40)
[2025-03-28 23:00] VITALS: BP 126/68; PULSE 70; RESP 16; TEMP 98.3; O2SAT 97
[2025-03-29 03:10] VITALS: BP 104/57; PULSE 68; RESP 16; TEMP 98; O2SAT 97
--- NOTE | 2025-03-29 05:26 | DVHPN2 ---
Progress Note Date Seen: Mar 29, 2025 Subjective S: Lochia minimal Tolerating regular diet well. Ambulating and voiding well w/o feeling lightheaded or dizzy. Passing flatus but no BM yet. Breast feeding. Contraceptive plan: OCP Desires and requests to be discharged home today vital signs Vital Sign Date Time Temp Pulse Resp B/P (MAP) Pulse Ox O2 Delivery O2 Flow Rate FiO2 03/29/25 03:10 98.0 68 16 104/57 (73) 97 98.0 03/28/25 19:00 Room Air Total Intake and Output 03/28/25 03/28/25 03/29/25 15:00 23:00 07:00 Intake Total 535 ml Output Total 1750 ml Balance -1215 ml medications Current Medications Medications Dose Ordered Sig/Shira Route Start Time Stop Time Status Last Admin Dose Admin Johnny Parikh 1 pad PRN PRN TOP 03/27/25 10:15 03/27/25 11:44 1 PAD Sodium Lauryl Sulfate 240 ml PRN PRN TOP 03/27/25 10:15 03/27/25 11:45 240 ML Benzocaine 1 applic PRN PRN TOP 03/27/25 10:15 03/27/25 11:44 1 APPLIC Lidocaine HCl 20 ml ONCE PRN IJ 03/27/25 10:15 Cancel Oxytocin 1,000 ml @ 6 ml/hr Q24H IV 03/28/25 03:30 Cancel Terbutaline Sulfate 0.25 mg ONCE PRN SC 03/28/25 03:30 Cancel Oxytocin 1,000 ml @ 6 ml/hr Q24H IV 03/28/25 03:30 Cancel Ibuprofen 600 mg Q6HP PRN PO 03/28/25 08:00 03/29/25 04:23 600 MG Acetaminophen 650 mg Q4HP PRN PO 03/28/25 08:00 03/28/25 19:40 650 MG Ondansetron HCl 4 mg Q4HPRN PRN PO 03/28/25 08:00 laboratory and microbiology Laboratory Tests 03/27/25 10:10 Test 03/27/25 10:10 Range/Units Serum Glucose 122 H 74-106 mg/dL Objective O: A&O x3 NAD. Afebrile, VSS Chest: heart and lung sounds normal. Breasts: Nipples intact w/o cracks or soreness Abdomen: normal BS, soft, non-tender, no rebound or guarding, fundus firm @ U- 1, lochia minimal Perineum:- no edema, or erythema, Extremities: no edema or tenderness Lochia - minimal Assessment/Plan 35 yo now ppd#1 s/p doing well. Blood Type: O Rh: Negative; had Rhogam Breast feeding and Formula feeding Rubella non immune; Will offer MMR vaccine Pain control with oral medications Bowel regimen: Increase fluid intake and fiber in diet, Laxative PRN PP BCM Plan: OCP Discharge plan: May discharge home later today if condition remains stable Plan discussed with: Patient Visit Coding OBGYN Date of Service: Mar 29, 2025 Billing Provider: SHAILA COOK CNM MD SENIOR RESEARCH SCIENTIST Common Visit Codes: [id number] INP/OBS CARE(HIGH) SHAILA COOK CNM Mar 29, 2025 05:25
--- NOTE | 2025-03-29 05:37 | DVHDS2 ---
Discharge Summary Date of Admission Mar 27, 2025 at 09:52 Date of Discharge: Mar 29, 2025 Admitting Diagnosis IUP at 39w 2d GBS Neg Rh Neg IOL ; psychosocial Labs/Diagnostic Data: Laboratory Results Test 03/27/25 10:10 White Blood Count 9.1 10^3/uL (4.4-10.8) Red Blood Count 4.16 10^6/uL (4.0-5.20) Hemoglobin 13.3 g/dL (12.2-16.2) Hematocrit 38.5 % (36.0-46.0) Mean Corpuscular Volume 92.5 fL (80.0-100.0) Mean Corpuscular Hemoglobin 32.0 pg (28.0-32.0) Mean Corpuscular Hemoglobin Concent 34.6 g/dL (32.0-36.0) Red Cell Distribution Width 13.7 % (11.8-14.3) Platelet Count 228 10^3/uL (140-450) Mean Platelet Volume 8.9 fL (6.9-10.8) Neutrophils (%) (Auto) 71.4 % (37.0-80.0) Lymphocytes (%) (Auto) 18.0 % (10.0-50.0) Monocytes (%) (Auto) 9.2 % (0.0-12.0) Eosinophils (%) (Auto) 1.0 % (0.0-7.0) Basophils (%) (Auto) 0.4 % (0.0-2.0) Neutrophils # (Auto) 6.5 10 ^3/uL (1.6-8.6) Lymphocytes # (Auto) 1.6 10 ^3/uL (0.4-5.4) Monocytes # (Auto) 0.8 10 ^3/uL (0-1.3) Eosinophils # (Auto) 0.1 10 ^3/uL (0-0.8) Basophils # (Auto) 0 10 ^3/uL (0-0.2) Nucleated Red Blood Cells 0.0 % Prothrombin Time 10.1 sec (9.3-11.8) Prothrombin Time INR 0.95 (0.9-1.15) Activated Partial Thromboplast Time 25.8 SEC (24.5-34.5) Urine Color Light-yellow (Yellow) Urine Clarity Clear (Clear) Urine pH 6.5 (5.0-9.0) Urine Specific [place] 1.010 (1.001-1.035) Urine Protein Negative (Negative) Urine Ketones Negative (Negative) Urine Blood Negative /uL (Negative) Urine Nitrite Negative (Negative) Urine Bilirubin Negative (Negative) Urine Urobilinogen Normal mg/dL (Negative) Urine Leukocyte Esterase Trace /uL (Negative) Urine RBC <1 /hpf (0 - 4) Urine Microscopic WBC < 1 /HPF (0-5) Urine Squamous Epithelial Cells Few /hpf (<5) Urine Bacteria Few /hpf (None Seen) Urine Glucose Normal mg/dL (Normal) Sodium Level 139 mmol/L (136-145) Potassium Level 3.6 mmol/L (3.5-5.1) Chloride Level 107 mmol/L (98-107) Carbon Dioxide Level 22 mmol/L (20-31) Anion Gap 10 (5-15) Blood Urea Nitrogen 5 mg/dL (9-23) Creatinine 0.68 mg/dL (0.550-1.02) Glomerular Filtration Rate Calc 116 mL/min (>90) BUN/Creatinine Ratio 7.4 (10.0-20.0) Serum Glucose 122 mg/dL (74-106) Calcium Level 8.9 mg/dL (8.7-10.4) Total Bilirubin 0.6 mg/dL (0.2-1.0) Aspartate Amino Transferase (AST) 15 U/L (13-40) Alanine Aminotransferase (ALT) 15 U/L (7-40) Alkaline Phosphatase 154 U/L (46-116) Total Protein 7.1 g/dL (5.7-8.2) Albumin 4.2 g/dL (3.2-4.8) Urine Opiates Screen Neg (NEGATIVE) Urine Fentanyl Screen Neg (NEGATIVE) Urine Barbiturates Screen Neg (NEGATIVE) Urine Phencyclidine Screen Neg (NEGATIVE) Urine Amphetamines Screen Neg (NEGATIVE) Urine Benzodiazepines Screen Neg (NEGATIVE) Urine Cocaine Screen Neg (NEGATIVE) Urine Cannabinoids Screen Neg (NEGATIVE) Treponema pallidum Antibody Non-reactive (Negative) Hepatitis C Antibody Negative (Negative) Other Laboratory Tests 03/27/25 10:10 Brief Hx & Hospital Course: Ms Morgan was admitted on 03/27/2025 at 39w 2d EGA for IOL; psychosocial. Induction process started with cervical ripening medication and patient then had an uneventful labor, got labor epidural for pain relief. She progressed to 2nd stage of labor and had a over an intact perineum. ( See Delivery Note for details) Normal course; meeting milestones w/o any problem or complications. Operations or Procedures IOL Condition at Discharge: Good Final Diagnosis/Problems List Same Term Delivered Discharge Disposition: Home Discharge Instruct/Medications Diet: Regular Diet comment: Routine regular diet rich in fiber, protein, iron and vitamin C with adequate fluid intake. Activity: No Restrictions, As Tolerated Activity comment: Unrestricted. Advance as tolerated. Balance activities with rest periods No heavy lifting, pushing or straining. Pelvic rest x 6weeks Follow Up/Referral: Follow up with OB Provider in 1-2 weeks Medications: Ibuprofen 600mg every 6 hours as needed for pain. Continue Vitamin with iron Miscellaneous Medications Vit W/ Ferrous Fumara (), 1 OR, (Reported) Discharge Statement: Instructions: self care instructions given. emergency signs and symptoms including but not limited to pre-eclampsia precautions and signs of infection, PPH & of PPD reviewed with patient. Follow up with OB Provider in 1 week "Patient was advised to return to the ER or call 911 if any headaches, dizziness, shortness of breath, chest pain, abdominal pain, bleeding, fevers, or worsening of medical condition. Patient was counseled about treatment plan, medications, possible side effects, patientverbalized understanding. All questions were answered to the best of my ability. This discharge took greater then 30 minutes in planning, reviewing documentation, counseling the patient, and discussing with other team members." ASSESSMENT ASSESSMENT Hospital Course Ms Morgan was admitted on 03/27/2025 at 39w 2d EGA for IOL; psychosocial. Induction process started with cervical ripening medication and patient then had an uneventful labor, got labor epidural for pain relief. She progressed to 2nd stage of labor and had a over an intact perineum. ( See Delivery Note for details) Normal course; meeting milestones w/o any problem or complications. Assessment Term Delivered Day #1 Visit Coding OBGYN Date of Service: Mar 29, 2025 Billing Provider: SHAILA COOK CNM MANUFACTURING SUPPORT ENGINEER Common Visit Codes: 09186-CCK/OBS DISCH DAY <30MIN, 28426-PBB/OBS DISCH DAY >30MIN SHAILA COOK [employer] [facility] Mar 29, 2025 05:37
[2025-03-29 07:00] VITALS: BP 113/58; PULSE 66; RESP 16; TEMP 97.9; O2SAT 98
[2025-03-29] MEDS: TETANUS-DIPTH-ACEL PERTUSSIS 0.5ML SYR Tdap IM ONE (10:31)
[2025-03-29] MEDS: MEASLES, MUMPS & RUBELLA VAC(MMRII) 0.5ML SC ONE (10:34)
[2025-03-29 11:00] VITALS: BP 110/62; PULSE 62; RESP 18; TEMP 98.1; O2SAT 98
== END 2025-03-29 11:18 | disposition home or self-care (01) | DRG 560 ==
LOC: LDRP 09:52
PROVIDERS: ADMIT Obstetrics & Gynecology; ATTEND Obstetrics & Gynecology
PROC: 10E0XZZ Delivery of Products of Conception, External Approach (ICD-10-PCS; principal; 2025-03-28)
PROC: 0U7C7DJ Dilation of Cervix with Intraluminal Device, Temporary, Via Natural or Artificial Opening (ICD-10-PCS; 2025-03-28)
PROC: 3E0DXGC Introduction of Other Therapeutic Substance into Mouth and Pharynx, External Approach (ICD-10-PCS; 2025-03-28)
PROC: 3E0R3BZ Introduction of Anesthetic Agent into Spinal Canal, Percutaneous Approach (ICD-10-PCS; 2025-03-28)
PROC: 00HU33Z Insertion of Infusion Device into Spinal Canal, Percutaneous Approach (ICD-10-PCS; 2025-03-28)
PROC: 30233S0 Transfusion of Autologous Globulin into Peripheral Vein, Percutaneous Approach (ICD-10-PCS; 2025-03-28)
DX: O69.81X0 Labor and delivery complicated by cord around neck, without compression, not applicable or unspecified (principal); Z37.0 Single live birth; O26.893 Other specified pregnancy related conditions, third trimester; Z3A.39 39 weeks gestation of pregnancy; Z67.41 Type O blood, Rh negative
CPT/HCPCS: 36415; 59025; 59200; 59409; 80053; 80307; 81001; 81002; 82948; 85025; 85610; 85730; 86780; 86803; 86850; 86900; 86901; 90384; 90715; 94760; 94762; 96360; 96361; 96365; 96366; 96372; 96374; 96375; G0378; J2590